=== PATIENT | female | born 1990 | race Asian ===

== ENCOUNTER → 2025-03-12 07:14 | Outpatient (CLI) | payer OTHER, SELFPAY ==
--- NOTE | 2025-03-12 07:16 | DI.US.S_ITS ---
PROCEDURE: US OB <= 14 WEEKS FETUS INDICATIONS: Offical dating US OUTSIDE/PRIOR DATING DATA: Last menstrual period (LMP): December 28, 2024. LMP-based estimated date of delivery (JODY): October 04, 2025. First dating scan (date and location): March 12, 2025. Estimated date of delivery (JODY) from first dating scan: October 18, 2025. TECHNIQUE: Real-time scanning was performed of the fetus and maternal pelvic organs, with image documentation. Endovaginal scanning was also performed to better visualize the fetus and maternal ovaries. COMPARISON: None. FINDINGS: Embryo: Single live intrauterine gestation with estimated sonographic gestational age of approximately 8 weeks and 4 days based crown-rump length measurement of approximately 2.0 cm. Heart rate: 169 beats per minute. Maternal organs: Ovaries appear within normal limits.. IMPRESSION: Single living intrauterine gestation with estimated sonographic gestational age of approximately 8 weeks and 4 days by crown-rump length measurement. Estimated date of delivery is approximately October 18, 2025 versus approximately October 04, 2025 by LMP. We strive to produce accurate, complete, and clear reports of imaging services. To assist us in improving patient care, this report was composed using standard report templates and voice recognition software. Therefore, it may contain abnormal punctuation, insertions and/or omissions. Occasional wrong-word or sound-alike substitutions may occur. Though we review the report and make efforts to correct it, we do recommend that the report be read carefully in proper context to recognize any text inaccuracies. Dictated by: Tito Crooks M.D. on 03/12/2025 at 15:38 Approved by: Tito Crooks M.D. on 03/12/2025 at 15:41
== END ==
PROVIDERS: PCP Nurse Practitioner Family; Referring Provider Nurse Practitioner Family; Visit Provider Student in an Organized Health Care Education/Training Program
DX: Z34.81 Encounter for supervision of other normal pregnancy, first trimester (principal); Z3A.08 8 weeks gestation of pregnancy
CPT/HCPCS: 76801

== ENCOUNTER → 2025-04-26 10:41 | Outpatient (CLI) | payer OTHER, SELFPAY | PROVIDERS: PCP Nurse Practitioner Family; Visit Provider Student in an Organized Health Care Education/Training Program | DX: Z3A.16 16 weeks gestation of pregnancy (principal); R30.9 Painful micturition, unspecified | CPT/HCPCS: 87086 ==

== ENCOUNTER → 2025-06-29 09:04 | Outpatient (CLI) | payer OTHER, SELFPAY ==
[2025-06-29 10:40] LABS: Hematocrit 33.0 % (36-46); Hemoglobin 11.5 g/dL (12.0-16.0)
[2025-06-29 11:02] LABS: GTT (PREG) 1 Hour PP 50gm Dose 105 mg/dL (76-139)
== END ==
PROVIDERS: PCP Nurse Practitioner Family; Referring Provider Student in an Organized Health Care Education/Training Program; Visit Provider Student in an Organized Health Care Education/Training Program
DX: Z34.92 Encounter for supervision of normal pregnancy, unspecified, second trimester (principal); Z3A.24 24 weeks gestation of pregnancy
CPT/HCPCS: 36415; 82950; 85014; 85018

== ENCOUNTER → 2025-07-19 10:24 | Outpatient (CLI) | payer OTHER, SELFPAY ==
[2025-07-19 14:21] LABS: Appearance Urine UA SL CLOUDY; Bilirubin Urine UA NEGATIVE (NEGATIVE); Color Urine UA YELLOW; Glucose Urine UA NEGATIVE (Negative); Ketones Urine UA NEGATIVE (NEGATIVE); Leukocyte Esterase Urine UA NEGATIVE (NEGATIVE); Nitrite Urine UA NEGATIVE (Negative); Occult Blood Urine UA NEGATIVE (Negative); Protein Urine UA TRACE (Negative); Specific Gravity Urine UA 1.020 (1.000-1.035); Urobilinogen Urine UA 0.2 E.U./dL (0.2)
[2025-07-19 14:23] LABS: pH Urine UA 6.5 (4.5-8.0)
[2025-07-19 14:25] LABS: Culture Indicated Urine Specimen Cultured
== END ==
PROVIDERS: PCP Nurse Practitioner Family; Referring Provider Student in an Organized Health Care Education/Training Program; Visit Provider Student in an Organized Health Care Education/Training Program
DX: N23 Unspecified renal colic (principal); Z3A.27 27 weeks gestation of pregnancy
CPT/HCPCS: 81001; 87086

== ENCOUNTER → 2025-07-28 12:38 | Outpatient (CLI) | payer OTHER, SELFPAY ==
--- NOTE | 2025-07-28 12:39 | DI.US.S_ITS ---
PROCEDURE: US OB LIMITED INDICATIONS: Growth Scan for AMA OUTSIDE/PRIOR DATING DATA: Working estimated delivery date of 10/18/2025 TECHNIQUE: Real-time scanning was performed of the fetus, with image documentation and biometric measurements. Endovaginal scanning: Not performed COMPARISON: [facility], , OB <= 14 WEEKS FETUS, 03/12/2025, 7:22. FINDINGS: General: A single living intrauterine gestation is present. Presentation: Vertex. Placenta: Placental position is anterior , without previa. Amniotic fluid index: 20.5 cm, normal range is 5-24 cm. Single deepest vertical pocket is 7.3 cm. heart rate: 153 beats per minute. Maternal cervical canal: 5.0 cm long. Normal lower limit is 2.5 cm. biometrics: Biparietal diameter: 7.4 centimeters, 29 weeks and 6 days Head circumference: 22.4 centimeters, 29 weeks and 6 days Abdominal circumference: 25.3 centimeters, 29 weeks and 3 days Femur length: 5.3 centimeters, 28 weeks and 0 days Clinically estimated gestational age: 28 weeks 2 days Composite gestational age from present scan: 29 weeks 2 days Estimated weight and percentile: 1320 grams, 67 percent Other: Four-chamber heart, nose lips, spine and sacrum appear normal.. IMPRESSION: Single live intrauterine consistent with 29 weeks and 2 days. Normal growth with estimated weight in the 67th percentile. We strive to produce accurate, complete, and clear reports of imaging services. To assist us in improving patient care, this report was composed using standard report templates and voice recognition software. Therefore, it may contain abnormal punctuation, insertions and/or omissions. Occasional wrong-word or sound-alike substitutions may occur. Though we review the report and make efforts to correct it, we do recommend that the report be read carefully in proper context to recognize any text inaccuracies. Dictated by: Arsen Mccall M.D. on 07/30/2025 at 8:33 Approved by: Arsen Mccall M.D. on 07/30/2025 at 8:40
--- NOTE | 2025-07-28 12:39 | DI.US.S_ITS ---
PROCEDURE: US RENAL COMPLETE INDICATIONS: H/O Kidney Stones, Flank Pain TECHNIQUE: Real-time scanning was performed of the kidneys and bladder, with image documentation. COMPARISON: None. FINDINGS: Kidneys: Kidneys are normal in size. Right kidney measures 10.2 cm long; left kidney measures 12.5 cm long. Right renal cortical thickness is 1.6 cm; left renal cortical thickness is 1.4 cm. Renal cortical echotexture is normal. No hydronephrosis or nephrolithiasis. No suspicious solid mass lesions. Bladder: Pre-void bladder volume is 782 mL. Post-void residual is 24 mL. Pre- void images demonstrate no intraluminal masses or stones. On pre-void images, bilateral ureteral jets are noted with color Doppler interrogation. (Of note, ureteral jets may not be detectable in up to 25% of cases due to insufficient differences in specific gravity between ureteral and bladder urine). Miscellaneous: No free pelvic fluid. IMPRESSION: Normal appearance of the kidneys and urinary bladder. No renal stones or hydronephrosis. Dictated by: Arsen Mccall M.D. on 07/30/2025 at 8:29 Approved by: Arsen Mccall M.D. on 07/30/2025 at 8:32
== END ==
LOC: US 12:39
PROVIDERS: PCP Nurse Practitioner Family; Referring Provider Student in an Organized Health Care Education/Training Program; Visit Provider Student in an Organized Health Care Education/Training Program
DX: O09.523 Supervision of elderly multigravida, third trimester (principal); O99.891 Other specified diseases and conditions complicating pregnancy; R10.A0 Flank pain, unspecified side; Z3A.29 29 weeks gestation of pregnancy; Z87.442 Personal history of urinary calculi
CPT/HCPCS: 76770; 76815